=== PATIENT | male | born 1965 | race Two or more races ===

== ENCOUNTER 2025-08-19 17:07 | Inpatient (IN) | payer MEDICAID, OTHER ==
[~2025-08-19] VITALS: Ht 165.1 cm; Wt 69.4 kg
[2025-08-19] MEDS: FAMOTIDINE/PF INJ 20 MG/2 ML VIAL IV ONE (17:30)
[2025-08-19] MEDS: ONDANSETRON HCL/PF 4 MG/2 ML VIAL IV ONE (17:30)
[2025-08-19] MEDS: IV NS 0.9% 1,000 ML BAG IV ONE ×2 (17:30→19:40)
[2025-08-19] MEDS ORDERED: ONDANSETRON HCL/PF 4 MG/2 ML VIAL ONE (17:32)
[2025-08-19] MEDS ORDERED: FAMOTIDINE/PF INJ 20 MG/2 ML VIAL IV ONE (17:32)
[2025-08-19 17:45] LABS: PLATELET COUNT (AUTO) 137 K/uL (150-450); RED BLOOD CELL COUNT(AUTO) 5.04 MIL/uL (4.5-6.0); RED CELL DISTRIBUTION WIDTH 13.4 % (11.5-15.0); WHITE BLOOD COUNT (AUTO) 8.6 K/uL (4.3-11.0)
[2025-08-19 18:03] LABS: ASPARTATE AMINOTRANSFERASE 15.0 U/L (15-37); CALCIUM, SERUM 8.4 mg/dL (8.5-10.1); CREATININE 1.2 mg/dL (0.6-1.3); SODIUM SERUM 126.0 mmol/L (136-145); TOTAL PROTEIN, SERUM 7.2 g/dL (6.4-8.2); UREA NITROGEN, BLOOD 27.0 mg/dL (7-18)
[2025-08-19] MEDS ORDERED: METF-440 PO (18:08)
[2025-08-19 18:12] LABS: APPEARANCE,URINE CLEAR (CLEAR); BLOOD, URINE Negative Ery/uL (NEGATIVE); LEUKOCYTE ESTERASE ,URINE Negative (NEGATIVE); NITRITE, URINE NEGATIVE (NEGATIVE); UGLUCOSE >=1000 mg/dL (NEGATIVE)
[2025-08-19 18:13] LABS: ADD URINE CULTURE NO; SQUAMOUS EPITHELIAL CELL,UR None Seen /HPF (None Seen)
[2025-08-19] MEDS ORDERED: FAMO20TA80 PO (19:44)
[2025-08-19] MEDS ORDERED: ONDA4TAB5 PO (19:44)
[2025-08-19] MEDS: KETOROLAC TROMETHAMINE 15 MG/ML VIAL IV ONE (20:03)
[2025-08-19] MEDS ORDERED: ONDANSETRON HCL/PF 4 MG/2 ML VIAL IVP PRN (21:30)
[2025-08-19] MEDS ORDERED: Z GUARD REMEDY 4 OZ OINT TP PRN (21:30)
[2025-08-19] MEDS ORDERED: ACETAMINOPHEN 325 MG TABLET PO PRN (21:30)
[2025-08-19] MEDS ORDERED: DEXTROSE 50%-WATER 50 ML DISP.SYRIN IV PRN (21:30)
[2025-08-19] MEDS ORDERED: MAGNESIUM HYDROXIDE 30 ML UDC PO PRN (21:30)
[2025-08-19] MEDS ORDERED: MAG HYDROX/AL HYDROX/SIMETH 30 ML UDC PO PRN (21:30)
[2025-08-19] MEDS: INSULIN GLARGINE, 100 UNIT/ML CARTRIDGE SQ SCH (21:50)
[2025-08-19] MEDS: BLOOD SUGAR DIAGNOSTIC 1 EACH STRIP VI SCH (22:49)
[2025-08-19] MEDS ORDERED: INSULIN REGULAR, HUMAN 100 UNIT/ML 10 ML VIAL ONE (22:51)
[2025-08-19] MEDS: *INSULIN REGULAR(HUMULIN R)HUM 100 UNIT/ML VIAL SQ PRN (22:54)
[2025-08-20 03:10] VITALS: BP 98/71; TEMP 97.9; O2SAT 98
[2025-08-20] MEDS: PANTOPRAZOLE 40 MG VIAL ONE (03:40)
[2025-08-20] MEDS: PANTOPRAZOLE 80 MG in IV NS 0.9% 100 ML IV ONE (03:41)
[2025-08-20 04:00] VITALS: BP 98/71; TEMP 97.9; O2SAT 98
[2025-08-20 08:20] LABS: CALCIUM, SERUM 8.5 mg/dL (8.5-10.1); CREATININE 1.0 mg/dL (0.6-1.3); PHOSPHORUS 3.3 mg/dL (2.5-4.9); SODIUM SERUM 139.0 mmol/L (136-145); UREA NITROGEN, BLOOD 21.0 mg/dL (7-18)
[2025-08-20 08:23] LABS: LDL 108.0 mg/dL (0-99)
[2025-08-20 08:28] LABS: PLATELET COUNT (AUTO) 117 K/uL (150-450); RED BLOOD CELL COUNT(AUTO) 4.60 MIL/uL (4.5-6.0); RED CELL DISTRIBUTION WIDTH 13.3 % (11.5-15.0); WHITE BLOOD COUNT (AUTO) 8.5 K/uL (4.3-11.0)
[2025-08-20] MEDS: METFORMIN 500 MG TABLET PO SCH (08:49)
[2025-08-20] MEDS: PANTOPRAZOLE 40 MG VIAL IV SCH (08:49)
[2025-08-20] MEDS ORDERED: FAMOTIDINE (20 MG) 20 MG TABLET PO SCH (09:00)
[2025-08-20] MEDS: POTASSIUM CHLORIDE 20 MEQ POWDER PACKET PO SCH (11:29)
[2025-08-20 13:07] LABS: CREATININE, URINE 165.6 MG/DL (30.0-125.0); URINE SODIUM, RANDOM < 5 mmol/l (40-220); URINE TOTAL PROTEIN 18.2 mg/dL (0-11.9)
[2025-08-20] MEDS: LACTULOSE 10 G/15 ML UDC (PYXIS) PO ONE (13:41)
[2025-08-20 16:00] VITALS: BP 147/86; TEMP 97.9; O2SAT 98
[2025-08-20 20:00] VITALS: BP 129/83; TEMP 98; O2SAT 97
[2025-08-20] MEDS: IV NS 0.9% 1,000 ML IV PRN (21:17)
[2025-08-20] MEDS: INSULIN GLARGINE, 100 UNIT/ML CARTRIDGE SQ SCH (21:32)
[2025-08-20] MEDS ORDERED: INSULIN GLARGINE, 100 UNIT/ML CARTRIDGE SQ SCH (22:00)
[2025-08-20] MEDS: ZOLPIDEM TARTRATE 5 MG TABLET PO PRN (22:04)
[2025-08-21 04:00] VITALS: BP 122/83; TEMP 98; O2SAT 98
[2025-08-21] MEDS: INSULIN REGULAR, HUMAN 100 UNIT/ML 3 ML VIAL SQ PRN (07:32)
[2025-08-21 07:49] LABS: PLATELET COUNT (AUTO) 125 K/uL (150-450); RED BLOOD CELL COUNT(AUTO) 4.49 MIL/uL (4.5-6.0); RED CELL DISTRIBUTION WIDTH 13.3 % (11.5-15.0); WHITE BLOOD COUNT (AUTO) 6.9 K/uL (4.3-11.0)
[2025-08-21 08:00] VITALS: BP 124/74; TEMP 97.9
[2025-08-21 08:06] LABS: CALCIUM, SERUM 8.4 mg/dL (8.5-10.1); CREATININE 0.8 mg/dL (0.6-1.3); SODIUM SERUM 141.0 mmol/L (136-145); UREA NITROGEN, BLOOD 13.0 mg/dL (7-18)
[2025-08-21] MEDS: PANTOPRAZOLE 40 MG/PACK PACK PO SCH (09:05)
[2025-08-21] MEDS ORDERED: INSU100V7 SQ (09:33)
[2025-08-21] MEDS ORDERED: PANT40TA2 PO (09:33)
[2025-08-21] MEDS: POTASSIUM CHLORIDE 20 MEQ POWDER PACKET PO ONE (11:06)
[2025-08-21] MEDS ORDERED: TAMS-12 PO (11:19)
[2025-08-21] MEDS: TAMSULOSIN 0.4 MG CAP.SR.24H PO SCH (11:40)
== END 2025-08-21 16:21 | disposition home or self-care (01) | DRG 422 ==
LOC: ER 17:36 → MEDSG1 08-20 02:05
PROVIDERS: ADMIT Nurse Practitioner Acute Care; ATTEND Nurse Practitioner Acute Care
DX: E86.0 Dehydration (principal); E86.1 Hypovolemia; E44.1 Mild protein-calorie malnutrition; E88.09 Other disorders of plasma-protein metabolism, not elsewhere classified; Z59.00 Homelessness unspecified; E11.65 Type 2 diabetes mellitus with hyperglycemia; I10 Essential (primary) hypertension; E87.1 Hypo-osmolality and hyponatremia; E87.6 Hypokalemia; Z79.899 Other long term (current) drug therapy; F17.210 Nicotine dependence, cigarettes, uncomplicated; R79.89 Other specified abnormal findings of blood chemistry
CPT/HCPCS: 36415; 71045-TC; 76705-TC; 80048-TC; 80053-TC; 80061-TC; 80076-TC; 81001; 82570-TC; 82962-TC; 83690-TC; 83735-TC; 84100-TC; 84300-TC; 85025-TC; 85027-TC; A4223; G0378; J1308; J1815; J1885; J2405; J2470; J7030; J7050